=== PATIENT | female | born 1965 | race African-American/Black ===

== ENCOUNTER 2018-06-26 05:51 | Day surgery (SDC) | payer BC ==
[2018-06-22 16:15] VITALS: BMI 23.2
[2018-06-26] MEDS ORDERED: LIDOCAINE HCL 2% (20ML MULTI-DOSE VIAL) NR ONE (07:16)
[2018-06-26] MEDS ORDERED: REFRIGERATED ANITBIOTICS ONE (08:10)
[2018-06-26] MEDS ORDERED: MIDAZOLAM HCL 2 MG/2 ML SINGLE DOSE VIAL ONE (09:06)
[2018-06-26] MEDS ORDERED: ONDANSETRON 4 MG/2 ML VIAL ONE (09:11)
[2018-06-26] MEDS ORDERED: DEXAMETHASONE SOD PHOSPHATE 4 MG/1 ML VIAL ONE (09:11)
[2018-06-26] MEDS ORDERED: ceFAZolin SODIUM 1 GM VIAL ONE (09:11)
[2018-06-26] MEDS ORDERED: KETOROLAC TROMETHAMINE 30 MG/1 ML VIAL ONE (09:14)
[2018-06-26] MEDS ORDERED: PROPOFOL 20 ML ONE ×3 (09:14)
[2018-06-26] MEDS ORDERED: LIDOCAINE HCL 2% (50ML VIAL) INF ONE (09:36)
[2018-06-26] MEDS ORDERED: oxyCODONE HCL 5 MG TABLET PO PRN (09:54)
[2018-06-26] MEDS ORDERED: ONDANSETRON 4 MG/2 ML VIAL IVPUSH PRN (09:54)
[2018-06-26] MEDS ORDERED: LACTATED RINGERS SOLUTION 1,000 ML IV SCH (10:00)
[2018-06-26 10:54] VITALS: TEMP 98
[2018-06-26 11:31] VITALS: BP 122/69; PULSE 62
--- NOTE | 2018-06-29 14:00 | OP ---
DATE OF OPERATION: 06/26/2018 LOCATION: [facility] SURGEON: Can Roa MD ELECTRICAL INSTRUMENT TECHNICIAN: RAFFAELE Lozada POSTOPERATIVE DIAGNOSES: Left wrist De Quervain tenosynovitis. POSTOPERATIVE DIAGNOSES: Left wrist De Quervain tenosynovitis. PROCEDURE: Left wrist De Quervain tenosynovitis. FINDINGS: Thickened tendon sheath along the De Quervain tendons with separate sheath inside. PROCEDURE: Informed consent was obtained in the operating room where the left upper extremity was prepped and draped in sterile fashion. Tourniquet was placed on the upper arm and inflated to 250 mmHg, and local anesthesia was used at the area. A 3-cm incision was made horizontally 2 cm proximal to the distal radial styloid. The De Quervain sheath was identified and incised. This was then released proximally and distally exposing the tendon sheath in De Quervain area. The individual sheaths were then released as well inside the area. Curved hemostats were placed around the tendons and found to be free of all obstructions. Wounds were irrigated with copious amounts of irrigation and closed with 2-0 Vicryl with a flap to prevent subluxation and 4-0 nylon. Sterile dressing was placed. The patient was transferred to the recovery room without complication. The PA listed above was present and assisted at surgery. Their presence was absolutely medically necessary for the completion of the procedure. They helped hold the arthroscopy, pass instruments (and implants when indicated) and the procedure could not have been completed without their assistance. CAN ROA M.D. [id number]
== END 2018-06-26 11:20 | disposition home or self-care (01) ==
LOC: FASU 05:51
PROVIDERS: ATTEND Orthopaedic Surgery
PROC: 0LN60ZZ Release Left Lower Arm and Wrist Tendon, Open Approach (ICD-10-PCS; principal; 2018-06-26 09:36)
DX: M65.4 Radial styloid tenosynovitis [de Quervain] (principal)
CPT/HCPCS: 84703; 94760

== ENCOUNTER 2020-07-25 23:03 | Emergency (ER) | payer BC, OTHER ==
[2020-07-25 23:20] VITALS: BP 179/111; PULSE 89; TEMP 97.6; BMI 24.0
[2020-07-25] MEDS ORDERED: predniSONE 20 MG TABLET (UD) PO ONE (23:59)
[2020-07-26] MEDS ORDERED: predniSONE 20 MG TABLET (UD) ONE (00:08)
== END 2020-07-26 00:17 | disposition home or self-care (01) ==
LOC: JER 23:03
DX: T78.40XA Allergy, unspecified, initial encounter (principal)
CPT/HCPCS: 99283-25

== ENCOUNTER 2021-02-23 05:10 | Day surgery (SDC) | payer BC, OTHER ==
[2021-02-21 16:22] VITALS: BMI 23.6
[2021-02-23 10:53] VITALS: TEMP 98.4
[2021-02-23 11:23] VITALS: BP 165/85; PULSE 52
== END 2021-02-23 11:53 | disposition home or self-care (01) ==
LOC: JASU-ENDO 05:10
PROVIDERS: ATTEND Internal Medicine Gastroenterology
PROC: 0DJD8ZZ Inspection of Lower Intestinal Tract, Via Natural or Artificial Opening Endoscopic (ICD-10-PCS; principal; 2021-02-23 10:31)
DX: Z12.11 Encounter for screening for malignant neoplasm of colon (principal); K57.30 Diverticulosis of large intestine without perforation or abscess without bleeding

== ENCOUNTER 2022-07-20 09:27 | Emergency (ER) | payer BC, OTHER ==
[2022-07-20 09:42] VITALS: BP 167/83; PULSE 72; RESP 18; TEMP 98.7; BMI 23.8
[2022-07-20] MEDS ORDERED: KETOROLAC TROMETHAMINE 30 MG/1 ML VIAL IM ONE (10:31)
[2022-07-20] MEDS ORDERED: METHOCARBAMOL 500 MG TABLET PO ONE (10:32)
[2022-07-20] MEDS ORDERED: METHOCARBAMOL 500 MG TABLET ONE (10:40)
[2022-07-20] MEDS ORDERED: KETOROLAC TROMETHAMINE 30 MG/1 ML VIAL ONE (10:41)
== END 2022-07-20 12:59 | disposition home or self-care (01) ==
LOC: JER 09:27 → JERFT 09:27
PROC: 3E023GC Introduction of Other Therapeutic Substance into Muscle, Percutaneous Approach (ICD-10-PCS; principal; 2022-07-20)
DX: M62.838 Other muscle spasm (principal); M79.605 Pain in left leg
CPT/HCPCS: 73502-TC-LT-FY; 93971-TC; 99284-25